=== PATIENT | male | born 1955 | race Caucasian/White ===

== ENCOUNTER 2018-12-10 06:15 | Day surgery (SDC) | payer OTHER ==
[~2018-12-10] VITALS: Ht 188 cm; Wt 91.2 kg
[~2018-12-10 06:15] MED LIST: ALLEGRA-D 12 H1 EACH PO; CYCLOBENZAPRINE10 MG PO; FLOMAX0.4 MG PO; NAPROSYN500 MG PO
--- NOTE | 2018-12-10 08:41 | NUR ---
12/10/18 0841 Florencia Marcano 0812 PT ARRIVED IN PACU SLEEPY. ABD SOFT. 0820 SITTING UP IN BED SIPPING ON JUICE. 0830 OXYGEN REMOVED. SATS 95% ON RA.
--- NOTE | 2018-12-10 09:30 | OR ---
[facility] [address], [place] [address] Signed DATE OF OPERATION: 12/10/2018 SURGEON: Daniele Rowan MD PREOPERATIVE DIAGNOSES: 1. Change in bowel habits. 2. Decreased caliber stool. 3. Incomplete evacuation of rectum. POSTOPERATIVE DIAGNOSES: 1. Pancolitis. 2. Minimal to moderate internal hemorrhoids. PROCEDURES: Colonoscopy with random cold biopsies throughout colon and rectum. ESTIMATED BLOOD LOSS: Minimal. 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 He has talked to me quite a bit about urinary frequency, but also change in bowel habits. He said he has a decrease in caliber of the stool and he feels like he never completely evacuate the rectum. He said it has been bothering him at least 10 months. He said the stool is soft, but yet he feels like there is a stricture at the anus and the stool is not coming out. He denies any obvious hemorrhoids. He has never had a previous colonoscopy. There is no family history of colon cancer or polyps. In the office, I gave him a pamphlet on colonoscopy and we looked at that together along with the risks including, but not limited to gas, bloating, crampy abdominal pain, bleeding, perforation, requiring surgery, and missed diagnosis. We also discussed the need for IV conscious sedation. He had expressed understanding and wished to proceed. PROCEDURE NOTE: Brian was taken into our endoscopy suite and placed in the left lateral decubitus position. He was given 6 mg of Versed and 200 mcg of fentanyl to cover the case. A digital rectal exam was performed. His prostate is indurated, but it is not enlarged. It is almost symmetric. The left side was just slightly larger than the right. No dominant nodules that I could feel. Really no obvious external hemorrhoids. He had Electronically Signed By: DANIELE ROWAN MD 12/10/18 0930 PATIENT NAME: BRIAN PUENTES OPERATIVE REPORT DATE OF : 59 REPORT #: [id number] PHYSICIAN: DANIELE ROWAN MD PCP: [facility] REPORT IS CONFIDENTIAL AND NOT TO BE RELEASED WITHOUT AUTHORIZATION [facility] [address] [place] [id number] Signed good sphincter tone. The adult colonoscope was then introduced and advanced all the way around into the cecum under direct visualization of camera. It took some extra sedation, abdominal compression, and rotating Brian into the supine position in order to get the camera directly into the cecum itself. His prep was moderate. He had a few areas of liquid particulate stool matter, which we were able to suction out. We could easily see the appendiceal orifice, the Teller's foot, and ileocecal valve. We had taken pictures throughout for photodocumentation. We noted that he has inflammatory changes from the anus all the way back to the cecum. The sigmoid colon in the proximal rectum seemed to be less involved than the other areas. We made multiple attempts to pass the scope into the terminal ileum. This was unsuccessful. The scope was then slowly withdrawn. We took multiple random cold biopsies throughout the colon including the cecum, right colon, hepatic flexure, transverse colon, left colon and rectum. Upon retroflexion of the scope in the rectum, he has minimal to moderate internal hemorrhoid columns. After this, the gas was suctioned out and the colonoscope removed. Brian tolerated the procedure quite well. RECOMMENDATIONS: I will see Brian back in my office in 7 to 14 days to review his results. We will hold any medications for now with respect to the colitis. Daniele Rowan MD ALB/MODL /[id number] cc: MD Duke Willis Copies: DANIELE ROWAN MD ~ Electronically Signed By: DANIELE ROWAN MD 12/10/18 0930 PATIENT NAME: BRIAN PUENTES OPERATIVE REPORT DATE OF : 59 REPORT #: [id number] PHYSICIAN: DANIELE ROWAN MD PCP: [facility] REPORT IS CONFIDENTIAL AND NOT TO BE RELEASED WITHOUT AUTHORIZATION
== END 2018-12-10 08:50 | disposition home or self-care (01) ==
LOC: DS 06:15
PROVIDERS: Colon & Rectal Surgery
PROC: 0DBL8ZX Excision of Transverse Colon, Via Natural or Artificial Opening Endoscopic, Diagnostic (ICD-10-PCS; 2018-12-10)
PROC: 0DBP8ZX Excision of Rectum, Via Natural or Artificial Opening Endoscopic, Diagnostic (ICD-10-PCS; 2018-12-10)
PROC: 0DBF8ZX Excision of Right Large Intestine, Via Natural or Artificial Opening Endoscopic, Diagnostic (ICD-10-PCS; 2018-12-10)
PROC: 0DBG8ZX Excision of Left Large Intestine, Via Natural or Artificial Opening Endoscopic, Diagnostic (ICD-10-PCS; 2018-12-10)
PROC: 0DBH8ZX Excision of Cecum, Via Natural or Artificial Opening Endoscopic, Diagnostic (ICD-10-PCS; principal; 2018-12-10 06:45)
DX: K51.00 Ulcerative (chronic) pancolitis without complications (principal); K64.8 Other hemorrhoids; Z88.0 Allergy status to penicillin; Z88.2 Allergy status to sulfonamides; Z91.040 Latex allergy status
CPT/HCPCS: 99153; G0500; J2250; J3010; J7120